=== PATIENT | female | born 1960 | race Caucasian/White ===

== ENCOUNTER 2016-10-28 14:24 | Emergency (ER) | payer OTHER ==
[2016-10-28 14:29] VITALS: BP 149/79; PULSE 105; TEMP 99.1; BMI 47.5
--- NOTE | 2016-10-28 14:41 | PDOC ---
History of Present Illness - General History Source: Patient - History of Present Illness Initial Comments: 10/28/16 15:43 The patient is a 56 year old morbidly obese female (LMP 08/2015), with a significant past medical history of fibroids, hypertension, hyperlipidemia, type 2 diabetes, osteoarthritis, and asthma, who presents to the emergency department with complaints of vaginal bleeding since . She reports that since she has had heavy and consistent vaginal bleeding and has soaked through 20 heavy flow sanitary pads. The patient notes that for the past few days she has been taking Naproxen. She reports associated abdominal cramping, nausea and back pain. She also notes that she is experiencing shortness of breath.The patient notes that she has experienced a similar episode to this last August for 2 weeks when she was taking prednisone. She reports that before last August she had regular and heavy periods. She reports that she has an appointment with her ELEVATOR ERECTOR HELPER on SundayOctober 30. She denies chest pain, headache, lightheadedness, and dizziness. She denies fever, chills, vomit, diarrhea and constipation. She denies dysuria, frequency, and urgency. Allergies: None Family History:Uterine cancer- Mother Social history: Denies alcohol and drug use <Marline Field - Last Filed: 10/28/16 16:37> - General History Source: Patient Exam Limitations: No Limitations <Brittni Jacobson - Last Filed: 10/28/16 16:45> - General Chief Complaint: Vaginal Bleeding Stated Complaint: vaginal bleeding Time Seen by Provider: 10/28/16 14:30 Past History <Marline Field - Last Filed: 10/28/16 16:37> - Past Medical History Asthma: Yes Diabetes: Yes HTN: Yes Hypercholesterolemia: Yes - Reproductive History Is Patient Now?: No (#): 2 Para: 2 Therapeutic (s) & number: No - Psycho/Social/Smoking Cessation Hx Anxiety: No Suicidal Ideation: No Smoking Status: No Smoking History: Never smoked Years of Tobacco Use: 0 Have you smoked in the past 12 months: No Number of Cigarettes Smoked Daily: 0 Information on smoking cessation initiated: No Hx Alcohol Use: No Drug/Substance Use Hx: No <Brittni Jacobson - Last Filed: 10/28/16 16:45> - Past Medical History Allergies/Adverse Reactions: Allergies Allergy/AdvReac Type Severity Reaction Status Date / Time No Known Allergies Allergy Verified 02/28/16 23:05 Home Medications: Ambulatory Orders Furosemide [Lasix -] 0 mg PO BID 07/02/15 Glipizide [Glipizide Xl] 0 mg PO 07/02/15 Ipratropium/Albuterol Sulfate [Combivent Respimat Inhal [place]] 4 gm IH PRN 07/02 Lisinopril [Zestril] 0 mg PO DAILY 07/02/15 Montelukast Na [Singulair -] 10 mg PO HS 07/02/15 Sitagliptin Phosphate [Januvia] 100 mg PO DAILY 07/02/15 Ibuprofen [Motrin -] 600 mg PO TID PRN #21 tablet 07/03/15 Oxycodone HCl/Acetaminophen [Percocet 5/325 -] 1 - 2 tab PO Q6H PRN #20 tab Levofloxacin [Levaquin] 750 mg PO ONCE #10 tablet 02/29/16 Review of Systems - Review of Systems Able to Perform ROS?: Yes Comments:: 10/28/16 15:44 CONSTITUTIONAL:+Morbidly obese Absent: fever, no chills, no fatigue EYES: Absent: visual changes ENT: Absent: ear pain, no sore throat CARDIOVASCULAR: Absent: chest pain, no palpitations RESPIRATORY:+SOB Absent: cough GASTROINTESTINAL:+abdominal cramping, +nausea Absent: no vomiting, no constipation, no diarrhea GENITOURINARY: +Vaginal bleeding Absent: dysuria, no frequency MUSKULOSKELETAL:+back pain Absent:no arthralgia, no myalgia SKIN: Absent: rash NEURO: Absent: headache <CraftMarline - Last Filed: 10/28/16 16:37> *Physical Exam - Vital Signs Last Vital Signs Temp Pulse Resp BP Pulse Ox 99.1 F 105 H 24 149/79 99 10/28/16 14:26 10/28/16 14:26 10/28/16 14:26 10/28/16 14:26 10/28/16 14:26 - Physical Exam Comments: 10/28/16 15:45 GENERAL: +morbidly obese The patient is in no acute distress. HEAD: Normal with no signs of trauma. EYES: PERRLA, EOMI, sclera anicteric, conjunctiva clear. ENT: Ears normal, nares patent, oropharynx clear without exudates. Dry mucous membranes. NECK: Normal range of motion, supple without lymphadenopathy, JVD, or masses. LUNGS: Breath sounds equal, clear to auscultation bilaterally. No wheezes, and no crackles. HEART: Tachycardia, normal S1 and S2 without murmur, rub or gallop. ABDOMEN: Soft, nontender, normoactive bowel sounds. No guarding, no rebound. No masses palpable. EXTREMITIES: Normal range of motion, no edema. No clubbing or cyanosis. No erythema, or tenderness. PELVIC: +Dark blood pooling in vault No cervical motion tenderness. No pelvic masses appreciated NEUROLOGICAL: Cranial nerves II through XII grossly intact. Normal speech. No focal neurological deficits. MUSCULOSKELETAL: Back non-tender to palpation, no CVA tenderness SKIN: Warm, Dry, normal turgor, no rashes or lesions noted. <Marline Field - Last Filed: 10/28/16 16:37> - Vital Signs Last Vital Signs Temp Pulse Resp BP Pulse Ox 99.1 F 105 H 24 149/79 99 10/28/16 14:26 10/28/16 14:26 10/28/16 14:26 10/28/16 14:26 10/28/16 14:26 <Brittni Jacobson - Last Filed: 10/28/16 16:45> ED Treatment Course - LABORATORY CBC & Chemistry Diagram: 10/28/16 15:14 10/28/16 15:14 - ADDITIONAL ORDERS Additional order review: 10/28/16 15:14 RBC 4.38 MCV 79.3 L MCHC 33.8 RDW 15.0 MPV 8.3 Neutrophils % 73.1 Lymphocytes % 19.3 Monocytes % 4.7 Eosinophils % 2.2 Basophils % 0.7 - RADIOLOGY Radiograph Interpretation: 10/28/16 16:29 US / TRANSVAGINAL ULTRASOUND US Reported by: Dr. Juancho Swan Reviewed by: Dr. Brittni Jacobson Impression: Mild nonspecific endometrial thickening is noted. 1.9 cm and 1.5 cm uterine leiomyomas are seen. A 1.7 cm left ovarian cyst is noted. <Marline Field - Last Filed: 10/28/16 16:37> - LABORATORY CBC & Chemistry Diagram: 10/28/16 15:14 10/28/16 15:14 <Brittni Jacobson - Last Filed: 10/28/16 16:45> Medical Decision Making - Medical Decision Making 10/28/16 14:41 A portion of this note was documented by scribe services under my direction. I have reviewed the details of the note, within reason, and agree with the documentation with the following case summary and management plan written by me. Nursing documentation reviewed and incorporated into medical decision making 10/28/16 15:27 This is a 56 yo F with a history of DM, HTN, HLD, Asthma who presents to the ER with a complaint of vaginal bleeding PT last period was 1 year ago She was told that she has fibriods Pt states her symptoms began two days ago She noted heavy vaginal bleeding She is saturating 20 large pads per day Denies lightheadedness, chest pain, dizziness She has an appointment with her new mechanical facilities technician in 2 days PT mother had a history of Uterine Cancer Will do : CBC Transvaginal US Will re assess 10/28/16 16:40 Laboratory Tests 07/02/15 07/02/15 10/28/16 22:32 22:32 15:14 Hgb 11.4 11.8 Hct 35.5 34.8 BUN 32 H Creatinine 0.8 Urine Blood Urine Nitrite Ur Leukocyte Esterase Urine RBC 10/28/16 10/28/16 15:14 15:14 Hgb Hct BUN 30 H Creatinine 0.8 Urine Blood 3+ H Urine Nitrite Negative Ur Leukocyte Esterase Negative Urine RBC >100 Transvaginal US 10/28/16 16:40 Will discharge to home Follow up with core machine tender already scheduled Return to the ER for increased bleeding, lightheadedness, weakness Clinical Impression: post menopausal bleeding <Brittni Jacobsno - Last Filed: 10/28/16 16:45> *DC/Admit/Observation/Transfer - Attestations Scribe Attestion: 10/28/16 15:45 Documentation prepared by NICOLE Zarate, acting as medical doctor for Brittni Jacobson MD. <Marline Field - Last Filed: 10/28/16 16:37> - Discharge Dispostion Admit: No <Brittni Jacobson - Last Filed: 10/28/16 16:45> Diagnosis at time of Disposition: Post-menopausal bleeding - Discharge Dispostion Disposition: HOME Condition at time of disposition: Improved - Patient Instructions Printed Discharge Instructions: DI for Vaginal Bleeding Additional Instructions: Ms. Duong Thank you for coming in to the ER today Your blood counts are stable Please review your Ultrasound results Please return to the ER for lightheadedness, chest pain, weakness Please keep your follow up appointment with the mechanical facilities technician on Sunday (in two day) Return to see us in the ER for any other concerns or complaints - Post Discharge Activity Work/School Note: Back to Work
[2016-10-28 15:32] LABS: BASOPHIL 0.7 % (0-2.0); EOSINOPHIL 2.2 % (0-4.5); MCH 26.8 pg (25.7-33.7); MCHC 33.8 g/dl (32.0-36.0); MEAN CELL VOLUME 79.3 fl (80-96); MEAN PLT VOLUME 8.3 fl (7.5-11.1); NEUTROPHILS 73.1 % (42.8-82.8); PLATELET COUNT 313 K/MM3 (134-434); WHITE BLOOD COUNT 12.7 K/mm3 (4.0-10.0)
[2016-10-28 15:49] LABS: ALBUMIN 3.9 g/dl (3.5-5.0); ALK PHOS 96 U/L (32-92); ANION GAP 8 (8-16); BILIRUBIN,TOTAL 0.3 mg/dl (0.2-1.0); CALCIUM 9.3 mg/dl (8.4-10.2); CO2 24 mmol/L (22-28); CREATININE 0.8 mg/dl (0.6-1.3); GLUCOSE,RANDOM 153 mg/dl (74-106); SGOT/AST 17 U/L (10-42); SGPT/ALT 15 U/L (10-40); TOT PROT 7.7 g/dl (6.4-8.3)
[2016-10-28 16:10] LABS: URINE APPEARANCE Cloudy; URINE BILIRUBIN 1+ (NEGATIVE); URINE GLUCOSE (UA) Negative (NEGATIVE); URINE KETONE Trace (NEGATIVE); URINE LEUK ESTERASE Negative (NEGATIVE); URINE NITRITE Negative (NEGATIVE); URINE UROBILINOGEN 0.2 E.U/dl (0.2-1.0)
[2016-10-28 16:11] LABS: URINE BLOOD 3+ (NEGATIVE); URINE COLOR RED; URINE PROTEIN 3+ (NEGATIVE); URINE RBC >100 /hpf (0-3)
== END 2016-10-28 17:06 | disposition home or self-care (01) ==
LOC: FER 14:24
DX: N95.0 Postmenopausal bleeding (principal); J45.909 Unspecified asthma, uncomplicated; E11.9 Type 2 diabetes mellitus without complications; I10 Essential (primary) hypertension; E78.00 Pure hypercholesterolemia, unspecified; E66.01 Morbid (severe) obesity due to excess calories; Z68.42 Body mass index [BMI] 45.0-49.9, adult
CPT/HCPCS: 36415; 76830-TC; 80053; 81003; 81015; 85025; 87086; 99283-25

== ENCOUNTER 2018-10-22 10:25 | Emergency (ER) | payer OTHER ==
--- NOTE | 2018-10-22 10:36 | PDOC ---
History of Present Illness - General Chief Complaint: Pain Stated Complaint: LEFT KNEE, LEFT LEG PAIN Time Seen by Provider: 10/22/18 10:34 - History of Present Illness Initial Comments: 10/22/18 10:55 58 yo F with h/o HTN, HLD, asthma, morbid obesity, OA who p/w left knee pain and swelling. Pt. reports 2 weeks of worsening left knee pain. Complains of increased left knee pain, and swelling x 1 day beginning yesterday (10/21/18) evening. Pain worse with ambulation and range of motion of left leg. No identifiable alleviators. Pt. does not f/w orthopedic surgery. Last saw orthopedic surgery 2014 and was told she was at risk and not candidate for surgical intervention, subsequently referred to Bariatrics. Denies falls or trauma to LLE. Ambulates without assistive device. Pain not improved with Percocet. Patient denies NOWAK, vision change, palpitations, cough, wheezing, orthopena, PND , N/V, F,C, CP, SOB, urinary complaints, hematuria, BPR, abdominal pain, diarrhea, BPR, constipation, lightheadedness, weakness, sensory changes. PMHx: as noted above. H/o pineda cyst and ganglion cyst LLE. Denies h/o PE/DVT. ROS: as noted Allergies: NKDA Past History - Past Medical History Allergies/Adverse Reactions: Allergies Allergy/AdvReac Type Severity Reaction Status Date / Time No Known Allergies Allergy Verified 10/22/18 10:33 Home Medications: Ambulatory Orders Furosemide [Lasix -] 40 mg PO DAILY 07/02/15 Glipizide [Glipizide Xl] 5 mg PO DAILY 07/02/15 Ipratropium/Albuterol Sulfate [Combivent Respimat Inhal [place]] 4 gm IH PRN 07/02 Lisinopril [Zestril] 20 mg PO DAILY 07/02/15 Montelukast Na [Singulair -] 10 mg PO HS 07/02/15 Sitagliptin Phosphate [Januvia] 100 mg PO DAILY 07/02/15 Oxycodone HCl/Acetaminophen [Percocet 5/325 -] 1 - 2 tab PO Q6H PRN #20 tab Atorvastatin Ca [Lipitor] 10 mg PO HS 10/22/18 Asthma: Yes Diabetes: Yes HTN: Yes Hypercholesterolemia: Yes - Reproductive History (#): 2 Para: 2 Therapeutic (s) & number: No - Immunization History Immunization Up to Date: Yes - Suicide/Smoking/Psychosocial Hx Smoking Status: No Smoking History: Never smoked Years of Tobacco Use: 0 Have you smoked in the past 12 months: No Number of Cigarettes Smoked Daily: 0 Hx Alcohol Use: No Drug/Substance Use Hx: No Review of Systems - Review of Systems Comments:: 10/22/18 10:58 GENERAL/CONSTITUTIONAL: No fever or chills. No weakness. HEAD, EYES, EARS, NOSE AND THROAT: No change in vision. No ear pain or discharge. No sore throat. CARDIOVASCULAR: No chest pain or shortness of breath RESPIRATORY: No cough, wheezing, or hemoptysis. GASTROINTESTINAL: No nausea, vomiting, diarrhea or constipation. GENITOURINARY: No dysuria, frequency, or change in urination. MUSCULOSKELETAL: + Left knee swelling and pain. No neck or back pain. SKIN: No rash NEUROLOGIC: No headache, vertigo, loss of consciousness, or change in strength/ sensation. ENDOCRINE: No increased thirst. No abnormal weight change HEMATOLOGIC/LYMPHATIC: No anemia, easy bleeding, or history of blood clots. ALLERGIC/IMMUNOLOGIC: No hives or skin allergy. *Physical Exam - Physical Exam Comments: 10/22/18 10:59 GENERAL: Awake, alert, and fully oriented, in no acute distress HEAD: No signs of trauma, normocephalic, atraumatic EYES: PERRLA, EOMI, sclera anicteric, conjunctiva clear ENT: Hearing grossly normal, nares patent, oropharynx clear without exudates. Moist mucosa NECK: Normal ROM, supple, no lymphadenopathy, JVD, or masses LUNGS: No distress, speaks full sentences, clear to auscultation bilaterally HEART: Regular rate and rhythm, normal S1 and S2, no murmurs, rubs or gallops, peripheral pulses normal and equal bilaterally. ABDOMEN: Soft, nontender, normoactive bowel sounds. No guarding, no rebound. No masses EXTREMITIES : + BL LE /calf ttp. BL LE 2+ pitting edema. Normal inspection, Normal range of motion. No clubbing or cyanosis. L KNEE: + patellar ttp, with nml joint laxity. + Left knee effusion. Absent erythema/warmth. Pain with active and passive ROM. Decreased ROM 2/2 pain. Neg ant/post drawer test. Neg varus/valgus deformity. No obvious bony deformity. NEUROLOGICAL: Cranial nerves II through XII grossly intact. Normal speech, normal gait, no focal sensorimotor deficits SKIN: Warm, Dry, normal turgor, no rashes or lesions noted Medical Decision Making - Medical Decision Making 10/22/18 11:01 58 yo F with h/o HTN, HLD, asthma, morbid obesity, OA who p/w left knee pain and swelling. HR 105, vitals otherwise wnl, AF, A&Ox3. Physical exam notable for Low risk DVT based on Weils criteria. Physical exam notable for + patellar ttp, with nml joint laxity. + Left knee effusion. Absent erythema/warmth. Pain with active and passive ROM. Decreased ROM 2/2 pain. Neg ant/post drawer test. BL LE 2+ Pitting edema. Neg varus/valgus deformity. No obvious bony deformity. Pain likely 2/2 degenerative changes/OA, but will r/o patellar fracture/ dislocation. No evidence of septic joint, or gout. Probable overuse injury. R/o DVT BL LE. Will provide oral analgesia and reassess. Ed Course: LEFT KNEE RAD, BL DUPLEX VASC 10/22/18 11:05 Patient advised to f/u with orthopedics surgery 10/22/18 11:08 Naproxen 375 mg 10/22/18 13:35 XRAY: Narrowing of tibifemoral joint compartment. 10/22/18 13:41 BL DUPLEX: Unremarkable 10/22/18 13:42 Pt. stable for d/c with return precautions. *DC/Admit/Observation/Transfer Diagnosis at time of Disposition: Knee pain Qualifiers: Chronicity: chronic Laterality: left Qualified Code(s): M25.562 - Pain in left knee - Discharge Dispostion Condition at time of disposition: Stable Decision to Admit order: No - Referrals Referrals: Roque Stewart MD [Staff Physician] - Beau Fernandez DO [Staff Physician] - Turner Lynn MD [Staff Physician] - - Patient Instructions Printed Discharge Instructions: DI for Knee Pain Additional Instructions: Please return to the emergency department with any new or worsening symptoms or concerns. Please follow up with your primary care physician and orthopedics surgery within 72 hours. Use ice on joint as needed for pain. - Post Discharge Activity - Attestations Physician Attestion: 10/22/18 11:06 I attest to the information provided in this note.
--- NOTE | 2018-10-22 10:51 | PDOC ---
Attending Attestation - Resident Resident Name: ShadMoisésUriel - ED Attending Attestation I have performed the following: I have examined & evaluated the patient, The case was reviewed & discussed with the resident, I agree w/resident's findings & plan, Exceptions are as noted - HPI HPI: 10/22/18 12:06 58yo female with hx of morbid obesity, dm presents with L knee pain. Hx of osteoarthritis. States she has seen ortho in the past who gave her a steroid injection. States pain started yesterday. Pain behind her knee and calf. States she feels her calf is swollen more than normal. No redness. No warmth. No f/c. No trauma. Denies falling. States able to walk her normal distances. Has appt with [facility] for gastric band surgery in November. States she was told she could not have knee replacement surgery because of her wt. Pt states she has not seen ortho since 2014. Pt with b/l calf ttp, mild knee pain with rom and ambulation. States she took an oxycodone last night for pain that did not resolve her pain. - Physicial Exam PE: 10/22/18 12:09 Gen: aaox3, nad heart: +s1s2 reg lungs: cta b/l abd: soft, obese, nt/nd ext: b/l calf ttp, no redness, no warmth, no rash, no cellulitis, knee ttp with ROM, no increased swelling to the knees, sensation intact - Medical Decision Making 10/22/18 10:51 I, Dr. Gina Barfield, DO, attest that this document has been prepared under my direction and personally reviewed by me in its entirety. I further attest, that it accurately reflects all work, treatment, procedures and medical decision -making performed by me. 10/22/18 12:10 a/p: 58yo female with L knee pain and b/l LE calf pain -will obtain duplex ultrasound of b/l LE -knee xray -no signs of septic joint -pt ambulated in the ED 10/22/18 12:40 xray shows worsening arthritic changes, bone on bone, DJD 10/22/18 13:35 pt updated on the xray results pending vascular studies will give orthopedic for follow up for further eval of DJD 10/22/18 13:40 dvt study negative - discussed with Dr. Swan, limited by body habitus, but no acute dvt seen. resident discussed the dvt results with the patient pt will need follow up with orthopedics tylenol/motrin for pain ice
[2018-10-22] MEDS ORDERED: NAPROXEN 375 MG TABLET (FP) PO ONE (11:08)
[2018-10-22 11:21] VITALS: BP 128/79; PULSE 89; TEMP 99; BMI 49.9
[2018-10-22] MEDS ORDERED: NAPROXEN 375 MG TABLET (FP) ONE (11:30)
== END 2018-10-22 13:50 | disposition home or self-care (01) ==
LOC: FER 10:25
DX: M25.562 Pain in left knee (principal); I10 Essential (primary) hypertension; E78.5 Hyperlipidemia, unspecified; J45.909 Unspecified asthma, uncomplicated; E66.01 Morbid (severe) obesity due to excess calories; Z68.42 Body mass index [BMI] 45.0-49.9, adult; M19.90 Unspecified osteoarthritis, unspecified site
CPT/HCPCS: 73562-TC-LT-FY; 93970-TC; 99283-25

== ENCOUNTER 2025-01-19 21:22 | Emergency (ER) | payer OTHER ==
[2025-01-19 21:31] VITALS: PULSE 97; RESP 18; TEMP 98.4; BMI 47.5
[2025-01-19] MEDS ORDERED: PIPERACILLIN/TAZOBACTAM 4.5 GM VIAL IVPB ONE (22:04)
[2025-01-19] MEDS: PIPERACILLIN/TAZOB 4.5 GM 4.5 GM in DEXTROSE 5%-WATER 100 ML IVPB ONE (22:12)
[2025-01-19 23:31] VITALS: BP 153/83
== END 2025-01-19 23:35 | disposition home or self-care (01) ==
LOC: FER 21:22
DX: L03.114 Cellulitis of left upper limb (principal)
CPT/HCPCS: 96365; 99284-25